=== PATIENT | male | born 1945 | race Caucasian/White ===

== ENCOUNTER 2019-11-14 16:58 | Outpatient (CLI) | payer MEDICARE, SELFPAY ==
--- NOTE | ~2019-11-14 | MR_ITS ---
EXAMINATION: MR hip RT wo con DATE: 11/14/2019 17:59 INDICATION: Right hip pain. TECHNIQUE: Magnetic resonance imaging (MRI) of the right hip was performed without intravenous contra st. Sequences included axial and coronal PD-weighted FS FSE and axial T1-weighted FSE of the pelvis. Sequences of the hip included 2D FIESTA, T1-weighted fast GRE, and axial, coronal, and sagittal PD-we ighted FS FSE. COMPARISON: Right hip radiographs 10/28/2019 FINDINGS: There is levocurvature and mild spondylosis of lumbar spine. There is a 4.4 x 3.0 cm mass in supra-ac etabular right ilium. There is an insufficiency fracture of supra-acetabular right ilium with low sig nal fracture line and surrounding bone marrow edema. There are smaller lesions of increased T2-weight ed signal intensity in the bone marrow in the left ilium, right sacral ala, and L5 vertebral body karlo suring up to 9 mm. There is mild osteoarthritis of the hips. No hip joint effusion. The prostate is m ildly enlarged. There is mild gluteus minimus tendinopathy bilaterally. The gluteus medius tendons ar e normal. The iliopsoas tendons are normal. There is mild tendinopathy of the hamstring origins bilat erally. There is prominent fat in the inguinal canals that may be small hernias. IMPRESSION: 1. Bone lesions, worst in right supra-acetabular ilium, consistent with metastatic disease versus mul tiple myeloma. 2. Insufficiency fracture of right supra-acetabular ilium. 3. Mild osteoarthritis of the hips. Reviewed, dictated and finalized at location A. SPLITTER IMPRESSION: 1. Bone lesions, worst in right supra-acetabular ilium, consistent with metasta tic disease versus multiple myeloma. 2. Insufficiency fracture of right supra-acetabular ilium. 3. Mild osteoarthritis of the hips.
== END 2019-11-14 16:59 | disposition home or self-care (01) ==
PROVIDERS: PCP Physician Assistant; Visit Provider Nurse Practitioner Family
DX: M25.551 Pain in right hip (principal); M89.9 Disorder of bone, unspecified; M84.454A Pathological fracture, pelvis, initial encounter for fracture; M16.0 Bilateral primary osteoarthritis of hip
CPT/HCPCS: 73721

== ENCOUNTER 2019-12-15 12:33 | Emergency (ER) | payer MEDICARE, SELFPAY ==
--- NOTE | ~2019-12-15 | XR_ITS ---
EXAMINATION: XR ribs RT 2V DATE: 12/15/2019 13:13 INDICATION: Anterior chest pain. TECHNIQUE: 3 views of the right ribs were obtained. COMPARISON: Chest 2 views 01/09/2004 FINDINGS: There is mild atelectasis at right lung base. No pleural effusion or pneumothorax. The hear t size is normal. There is a fracture of right fifth rib, likely pathologic. There is a fracture of r ight seventh rib. IMPRESSION: 1. Fractures of right fifth and seventh ribs. The right fifth rib fracture is likely pathologic. The differential diagnosis includes metastatic disease and multiple myeloma. Reviewed, dictated and finalized at location A. OUTPATIENT SURGERY IMPRESSION: 1. Fractures of right fifth and seventh ribs. The right fifth rib fracture is l ikely pathologic. The differential diagnosis includes metastatic disease and mu ltiple myeloma.
[2019-12-15 12:54] VITALS: BP 163/81; PULSE 88; RESP 19; TEMP 36.7; O2SAT 96
--- NOTE | 2019-12-15 12:55 | ED.GENADULT ---
HPI - General Adult General Chief complaint: Unspecified Stated complaint: pain? right flank/rib Time Seen by Provider: 12/15/19 12:39 Source: patient Mode of arrival: ambulatory Limitations: no limitations History of Present Illness HPI narrative: A 74 y/o male pt presents to the ED, with c/o rt sided rib pain that began after coughing on Monday morning (2 days ago). He notes the pain is aggravated with movement and coughing. Pt denies having fever, chills, sweats, sore throat, or rhinorrhea. He states that he had a biopsy performed at [facility] on his rt hip on Monday (4 days ago) for a tumor that is pushing on his rt hip bone, but he is unsure of the results. Pt notes taking Tylenol for his pain prior to arrival. He states that he is a current every day smoker. MD complaint: Rt sided rib pain Onset (ago): day(s) (2) Location: right (rib cage) Exacerbating factors: movement and other (cough) Associated symptoms: cough Treatments prior to arrival: other (Tylenol) Related Data Home Medications Medication Instructions Recorded Confirmed acetaminophen [Tylenol Extra 100 mg PO BID PRN 10/28/19 11/18/19 Strength] allopurinol 100 mg PO DAILY 10/28/19 11/18/19 amlodipine 5 mg PO DAILY 10/28/19 11/18/19 hydrochlorothiazide 25 mg PO DAILY 10/28/19 11/18/19 lisinopril 40 mg PO DAILY 10/28/19 11/18/19 meloxicam 15 mg PO DAILY 10/28/19 11/18/19 metoprolol succinate 50 mg PO DAILY 10/28/19 11/18/19 simvastatin 40 mg PO DAILY 10/28/19 11/18/19 tamsulosin 0.4 mg PO DAILY 10/28/19 11/18/19 Allergies Allergy/AdvReac Type Severity Reaction Status Date / Time Penicillins Allergy Unknown Swelling Verified 12/15/19 13:04 Review of Systems Review of Systems: All systems reviewed & are unremarkable except as noted in HPI and below Constitutional: Constitutional: Denies chills, Denies excessive sweating and Denies fever(s) ENT: Denies sore throat and Denies other (rhinorrhea) Respiratory: Respiratory: Reports cough Musculoskeletal: Musculoskeletal: Reports other (rt sided rib pain) [facility] Past Medical History Medical History Difficulty urinating High cholesterol History of heart disease History of skin cancer HTN (hypertension) Right hip pain SOB (shortness of breath) Surgical History Surgical History History of cardiovascular surgery Social History Social History Smoking packs per day: 1 Smoking cigarettes per day: 20.0 Smoking status: Current every day smoker Tobacco type: cigarettes Second hand tobacco smoke exposure: No Alcohol intake: current Drinks per week: 6 Substance use: unknown 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 HEAD: Normocephalic, atraumatic. ENT: Mucous membranes moist. CHEST: Faint wheezing with good air movement and no distress. No reproducible tenderness to the chest wall but no audible click is heard over the posterior lung horowitz when breathing. No bruising or deformity to the chest. HEART: Regular rate and rhythm. Normal peripheral pulses. EXTREMITIES: Normal range of motion. No edema. NEURO: Alert and oriented x3. Course Course Emergency Course: Patient informed of results. He has been made aware that he likely has a pathologic rib fracture and that metastatic cancer is a real possibility. He is already had a biopsy of his right hip lesion and is supposed to follow-up at [facility] this week. Vital Signs Vital signs: Vital Signs Temperature 98.0 F 12/15/19 12:54 Pulse Rate 88 12/15/19 12:54 Respiratory Rate 19 12/15/19 12:54 Blood Pressure 163/81 H 12/15/19 12:54 Pulse Oximetry 96 12/15/19 12:54
[2019-12-15 13:27] VITALS: PULSE 84; RESP 17
[2019-12-15] MEDS: ALBUTEROL SULFATE NEB 2.5 MG/0.5 ML INH 5 MG INHALATION (13:27)
[2019-12-15] MEDS: IPRATROPIUM BR 0.02% INH SOLN 0.5 MG/2.5 ML VIAL INHALATION (13:27)
[2019-12-15 13:34] VITALS: PULSE 79; RESP 20
[2019-12-15 14:15] VITALS: BP 157/90; PULSE 92; RESP 28; O2SAT 92
== END 2019-12-15 14:17 | disposition home or self-care (01) ==
PROVIDERS: Emergency Provider Emergency Medicine; PCP Physician Assistant
DX: M84.48XA Pathological fracture, other site, initial encounter for fracture (principal); E78.00 Pure hypercholesterolemia, unspecified; Z85.828 Personal history of other malignant neoplasm of skin; I10 Essential (primary) hypertension; F17.210 Nicotine dependence, cigarettes, uncomplicated
CPT/HCPCS: 71100; 94640; 99283

== ENCOUNTER 2020-01-06 18:43 | Emergency (ER) | payer MEDICARE, SELFPAY ==
--- NOTE | ~2020-01-06 | CT_ITS ---
EXAMINATION: CT abdomen pelvis w con DATE: 01/06/2020 20:02 INDICATION: Abdominal pain. TECHNIQUE: Computed tomography (CT) of the abdomen and pelvis was performed with 100 mL Omnipaque 350 intravenous contrast. Automated exposure control and iterative reconstruction technique were employe d. The dose-length product was 386.47 mGy-cm. COMPARISON: None. FINDINGS: The visualized portions of the lung bases demonstrate severe emphysema. There is atelectasi s and scarring in the lower lobes and right middle lobe. There are small pleural effusions. The heart size is normal. There are coronary artery calcifications. No pericardial effusion. The liver demonst rates focal steatosis adjacent to the falciform ligament. The gallbladder, spleen, pancreas, and adre nal glands are normal. There is cortical thinning of the kidneys. The rectum is distended by stool. T he appendix is normal. There are no pathologically enlarged lymph nodes. There is no free intraperito anthony fluid. 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 There is severe stenosis of left external iliac artery origin. 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 There is a small right inguinal hernia containing fat. There are no pathologically enlarged lymph nodes. T here is no free intraperitoneal fluid. There are scattered lytic lesions of bone involving the pelvis , sacrum, and spine. There are pathologic compression fractures of L5 and T9. IMPRESSION: 1. Scattered lytic lesions of bone, consistent with metastatic squamous cell carcinoma. 2. Small pleural effusions. 3. Stool distends the rectum. 4. 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 5. 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 6. Severe emphysema. Reviewed, dictated and finalized at location A. IMPRESSION: 1. Scattered lytic lesions of bone, consistent with metastatic squamous cell ca rcinoma. 2. Small pleural effusions. 3. Stool distends the rectum. 4. 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 3.1 cm fusiform aneury sm of infrarenal aorta. 5. 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 6. Severe emphysema.
[2020-01-06 18:41] VITALS: BP 189/88; PULSE 82; RESP 18; TEMP 36.4; O2SAT 99
--- NOTE | 2020-01-06 18:47 | ED.ABDPAIN ---
HPI - Abdominal Pain General Chief Complaint: Abdominal Pain Stated Complaint: ABD PAIN Time Seen by Provider: 01/06/20 18:47 Source: RN notes reviewed Mode of arrival: EMS Limitations: other (poor historian) History of Present Illness HPI narrative: Pt is a 74 y/o male who presents to the ED, via EMS, with c/o generalized ABD pain. Per nurse, pt has not urinated or taken a BM in 2 days. Per nurse, pt is a cancer pt. A complete HPI is limited d/t pt being a poor historian. MD elicited complaint: abdominal pain Onset (ago): day(s) (2) Location: diffuse Associated symptoms: other (constipation, no urination in 2 days) Related Data Home Medications Medication Instructions Recorded Confirmed acetaminophen [Tylenol Extra 100 mg PO BID PRN 10/28/19 01/01/20 Strength] allopurinol 100 mg PO DAILY 10/28/19 01/01/20 amlodipine 5 mg PO DAILY 10/28/19 01/01/20 hydrochlorothiazide 25 mg PO DAILY 10/28/19 01/01/20 lisinopril 40 mg PO DAILY 10/28/19 01/01/20 meloxicam 15 mg PO DAILY 10/28/19 01/01/20 metoprolol succinate 50 mg PO DAILY 10/28/19 01/01/20 simvastatin 40 mg PO DAILY 10/28/19 01/01/20 tamsulosin 0.4 mg PO DAILY 10/28/19 01/01/20 Allergies Allergy/AdvReac Type Severity Reaction Status Date / Time Penicillins Allergy Unknown Swelling Verified 01/06/20 18:58 Review of Systems Review of Systems: Narrative: A complete ROS is limited d/t pt being a poor historian Gastrointestinal: Gastrointestinal: Reports abdominal pain and Reports constipation Genitourinary: Genitourinary: Reports other (no urine output in 2 days) [facility] Past Medical History Medical History Difficulty urinating High cholesterol History of heart disease History of skin cancer HTN (hypertension) Right hip pain SOB (shortness of breath) Surgical History Surgical History History of cardiovascular surgery Social History Social History Smoking packs per day: 0.5 Smoking cigarettes per day: 10.0 Years smoked: 50 Smoking pack-years: 25.00 Smoking status: Current some day smoker Tobacco type: cigarettes Second hand tobacco smoke exposure: No Additional smoking assessment comments: use to smoke a pack a day, stopped for 7 years in between Alcohol intake: current Drinks per week: 6 Substance use: unknown 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 Procedure well tolerated with rapid improvement in symptoms. Course Vital Signs Vital signs: Vital Signs Temperature 36.4 C 01/06/20 18:41 Pulse Rate 82 01/06/20 18:41 Respiratory Rate 18 01/06/20 18:41 Blood Pressure 189/88 H 01/06/20 18:41 Pulse Oximetry 99 01/06/20 18:41 Temperature 36.4 C 01/06/20 18:41 Pulse Rate 69 01/06/20 21:11 Respiratory Rate 16 01/06/20 21:11 Blood Pressure 142/89 H 01/06/20 21:11 Pulse Oximetry 99 01/06/20 21:11 MDM - Abdominal Pain Differential Diagnosis Differential diagnosis: Likely abdominal pain, constipation, diverticulitis, pancreatitis, small bowel obstruction and other (urinary retention, UTI) Medical Records Attestation: I reviewed the patient's medical records. Lab Data Attestation: I reviewed the patient's lab results. Result diagrams: 01/06/20 19:02 01/06/20 19:02 Labs: Lab Results 01/06/20 01/06/20 01/06/20 Range/Units 19:02 19:02 19:02 WBC 11.4 H (4.5-10.0) K/mm3 RBC 4.21 L (4.6-6.20) M/mm3 Hgb 13.5 L (14.0-18.0) g/dL Hct 40.1 L (42.0-52.0) % MCV 95.2 (80-
[2020-01-06 19:12] LABS: Basophils Absolute Auto 0.1 K/mm3 (0.0-0.1); Basophils Percent Auto 0.5 % (0.2-1.2); Eosinophils Percent Auto 8.4 % (0-4.4); Hematocrit 40.1 % (42.0-52.0); Hemoglobin 13.5 g/dL (14.0-18.0); Immature Granulocyte Absolute 0.03 K/mm3 (0.00-0.031); Immature Granulocyte Percent A 0.3 % (0-0.5); Lymphocytes Percent Auto 10.6 % (18.3-44.2); Mean Corpuscular HGB Conc 33.7 g/dl (32-36); Mean Corpuscular Hemoglobin 32.1 pg (26-34); Mean Corpuscular Volume 95.2 fl (80-100); Mean Platelet Volume 9.5 fl (7.4-10.4); Monocytes Absolute Auto 0.7 K/mm3 (0.1-0.6); Monocytes Percent Auto 6.5 % (2.6-8.5); Neutrophils Absolute Auto 8.4 K/mm3 (1.3-6.7); Neutrophils Percent Auto 73.7 % (45.5-73.1); Platelet Count Result 371 k/mm3 (150-375); Red Blood Count 4.21 M/mm3 (4.6-6.20); Red Cell Distribution Width 13.3 % (11.5-14.5); White Blood Count 11.4 K/mm3 (4.5-10.0)
--- NOTE | 2020-01-06 19:15 | PC.NURSE ---
assuming care of pt at this time, received report from penelope mancilla.
[2020-01-06 19:16] VITALS: BP 159/84; PULSE 67; RESP 15; O2SAT 94
[2020-01-06 19:22] LABS: Add Urine Microscopic? NO; Appearance Urine Clear (Clear); Bilirubin Urine Negative (Negative); Blood Urine Negative (Negative); Color Urine Yellow (Yellow); Glucose Urine UA Negative (Negative); Ketones Urine Negative (Negative); Leukocyte Esterase Ur Negative LEU/UL (Negative); Nitrate Urine Negative (Negative); Protein Urine Negative (Negative); Specific Grav Ur 1.017 (1.001-1.035); Urobilinogen Urine Negative mg/dL (<2.0)
[2020-01-06] MEDS: SODIUM CHLORIDE 0.9% IV 1,000 ML 999 ML IV CONT (19:24)
[2020-01-06 19:35] LABS: Alanine Aminotransferase 16 U/L (4-50); Albumin Level 3.7 g/dL (3.5-5.1); Alkaline Phosphatase 195 U/L (38-126); Aspartate Amino Transferase 28 U/L (17-59); Bilirubin,Total 0.5 mg/dL (0.2-1.3); Blood Urea Nitrogen 36 mg/dL (9-20); Carbon Dioxide 36 mmol/L (22-30); Chloride 93 mmol/L (98-107); Estimated CRCL calculation 42 ml/min; Estimated Glomerular Filt Rate 54; Glucose 88 mg/dL (75-110); Lipase 37 U/L (23-300); Potassium 2.8 mmol/L (3.4-5.0); Sodium 136 mmol/L (137-145)
[2020-01-06 20:06] LABS: Calcium 15.1 mg/dL (8.4-10.2)
[2020-01-06] MEDS: POTASSIUM CHLORIDE 20 MEQ PACKET (FOR LIQUID) 40 MEQ PO (20:09)
[2020-01-06 21:11] VITALS: BP 142/89; PULSE 69; RESP 16; O2SAT 99
[2020-01-06] MEDS: DOCUSATE SODIUM 400 MG/400 ML ENEMA RECTAL (21:30)
[2020-01-06 22:37] VITALS: BP 167/78; PULSE 80; RESP 18; O2SAT 97
== END 2020-01-06 22:46 | disposition home or self-care (01) ==
PROVIDERS: Emergency Provider Emergency Medicine; PCP Internal Medicine
DX: K56.41 Fecal impaction (principal); R33.9 Retention of urine, unspecified; E78.00 Pure hypercholesterolemia, unspecified; Z85.828 Personal history of other malignant neoplasm of skin; I10 Essential (primary) hypertension; F17.210 Nicotine dependence, cigarettes, uncomplicated; M89.9 Disorder of bone, unspecified; I71.4 Abdominal aortic aneurysm, without rupture; I72.3 Aneurysm of iliac artery; J43.9 Emphysema, unspecified
CPT/HCPCS: 36415; 74177; 80053; 81003; 83690; 85025; 96360; 96361; 99284; A9270; J7030; Q9967